=== PATIENT | male | born 1970 | race Two or more races ===

== ENCOUNTER 2017-08-29 22:15 | Emergency (ER) | payer OTHER ==
[2017-08-29 22:28] VITALS: BP 155/80; PULSE 76; TEMP 98.4; BMI 25.4
--- NOTE | 2017-08-29 22:54 | PDOC ---
History of Present Illness - General History Source: Patient Exam Limitations: No Limitations - History of Present Illness Initial Comments: 08/29/17 23:04 The patient is a 47 year old with a significant PMH of HTN and chronic pain who presents to the emergency department with an episode of shortness of breath just prior to arrival. The patient reports having dinner and taking his usual Percocet for his chronic pain when he had a sudden onset of shortness of breath. At presentation, the patient reports his symptoms have resolved. He currently denies shortness of breath. He denies chest pain. He denies headache or dizziness. He denies nausea or vomiting. Denies fever, chills, diarrhea and constipation. Denies dysuria, frequency, urgency and hematuria. Allergies: NKA Past surgical history: None reported. Social history: No reported cigarette, alcohol, or drug use. PCP: Dr. Pancho Montez <Yonny Funes - Last Filed: 08/29/17 23:04> - General History Source: Patient <Dustin Juarez - Last Filed: 08/29/17 23:05> - General Chief Complaint: Lethargy Stated Complaint: S.O.B Time Seen by Provider: 08/29/17 22:54 Past History <Yonny Funes - Last Filed: 08/29/17 23:04> - Past Medical History COPD: No HTN: Yes - Immunization History Immunization Up to Date: No - Suicide/Smoking/Psychosocial Hx Smoking History: Never smoked Have you smoked in the past 12 months: No Information on smoking cessation initiated: No Hx Alcohol Use: No Drug/Substance Use Hx: No Substance Use Type: None <Dustin Juarez - Last Filed: 08/29/17 23:05> - Past Medical History Allergies/Adverse Reactions: Allergies Allergy/AdvReac Type Severity Reaction Status Date / Time No Known Allergies Allergy Verified 08/29/17 22:24 Home Medications: Ambulatory Orders Oxycodone HCl/Acetaminophen [Percocet 5-325 mg Tablet] 1 - 2 tab PO Q6H Review of Systems - Review of Systems Able to Perform ROS?: Yes Comments:: 08/29/17 23:04 CONSTITUTIONAL: Absent: fever, chills, diaphoresis, generalized weakness, malaise, loss of appetite HEENT: Absent: rhinorrhea, nasal congestion, throat pain, throat swelling, difficulty swallowing, mouth swelling, ear pain, eye pain, visual Changes CARDIOVASCULAR: Absent: chest pain, syncope, palpitations, irregular heart rate, lightheadedness , peripheral edema RESPIRATORY: (+) Shortness of breath (resolved). Absent: cough, dyspnea with exertion, orthopnea, wheezing, stridor, hemoptysis GASTROINTESTINAL: Absent: abdominal pain, abdominal distension, nausea, vomiting, diarrhea, constipation, melena, hematochezia GENITOURINARY: Absent: dysuria, frequency, urgency, hesitancy, hematuria, flank pain, genital pain MUSCULOSKELETAL: Absent: myalgia, arthralgia, joint swelling SKIN: Absent: rash, itching, pallor HEMATOLOGIC/IMMUNOLOGIC: Absent: easy bleeding, easy bruising, lymphadenopathy, frequent infections ENDOCRINE: Absent: unexplained weight gain, unexplained weight loss, heat intolerance, cold intolerance NEUROLOGIC: Absent: headache, focal weakness or paresthesias, dizziness, unsteady gait, seizure, mental status changes, bladder or bowel incontinence PSYCHIATRIC: Absent: anxiety, depression, suicidal or homicidal ideation, hallucinations. <Yonny Funes - Last Filed: 08/29/17 23:04> *Physical Exam - Vital Signs Last Vital Signs Temp Pulse Resp BP Pulse Ox 98.4 F 76 18 155/80 100 08/29/17 22:25 08/29/17 22:25 08/29/17 22:25 08/29/17 22:25 08/29/17 22:25 - Physical Exam Comments: 08/29/17 23:04 GENERAL: Well developed, well nourished. Awake and alert. No acute distress. HEENT: Normocephalic, atraumatic. PERRLA, EOMI. No conjunctival pallor. Sclera are non- icteric. Moist mucous membranes. Oropharynx is clear. NECK: Supple. Full ROM. No JVD. Carotid pulses 2+ and symmetric, without bruits. No thyromegaly. No lymphadenopathy. CARDIOVASCULAR: Regular rate and rhythm. No murmurs, rubs, or gallops. Distal pulses are 2+ and symmetric. PULMONARY: No evidence of respiratory distress. Lungs clear to auscultation bilaterally. No wheezing, rales or rhonchi. ABDOMINAL: Soft. Non-tender. Non-distended. No rebound or guarding. No organomegaly. Normoactive bowel sounds. MUSCULOSKELETAL Normal range of motion at all joints. No bony deformities or tenderness. No CVA tenderness. EXTREMITIES: No cyanosis. No clubbing. No edema. No calf tenderness. SKIN: Warm and dry. Normal capillary refill. No rashes. No jaundice. NEUROLOGICAL: Alert, awake, appropriate. Cranial nerves 2-12 intact. No deficits to light touch and temperature in face, upper extremities and lower extremities. No motor deficits in the in face, upper extremities and lower extremities. Normoreflexic in the upper and lower extremities. Normal speech. Toes are downgoing bilaterally. Gait is normal without ataxia. PSYCHIATRIC: Cooperative. Good eye contact. Appropriate mood and affect. <Yonny Funes - Last Filed: 08/29/17 23:04> - Vital Signs Last Vital Signs Temp Pulse Resp BP Pulse Ox 98.4 F 76 18 155/80 100 08/29/17 22:25 08/29/17 22:25 08/29/17 22:25 08/29/17 22:25 08/29/17 22:25 <Dustin Juarez - Last Filed: 08/29/17 23:05> Medical Decision Making - Medical Decision Making 08/29/17 23:05 Dr. Juarez: The scribe's documentation has been prepared under my direction and personally reviewed by me in its entirery. I confirm that the note above accurately reflects all work, treatment, procedures, and medical decision making performed by me. <Dustin Juarez - Last Filed: 08/29/17 23:05> *DC/Admit/Observation/Transfer - Attestations Scribe Attestion: 08/29/17 23:04 Documentation prepared by Yonny Funes, acting as medical laboratory scientist for Dustin Juarez DO. <Yonny Funes - Last Filed: 08/29/17 23:04> - Discharge Dispostion Admit: No <Dustin Juarez - Last Filed: 08/29/17 23:05> Diagnosis at time of Disposition: SOB (shortness of breath) - Discharge Dispostion Disposition: HOME Condition at time of disposition: Stable - Referrals Referrals: Pancho Montez MD [Primary Care Provider] - - Patient Instructions Printed Discharge Instructions: DI for Shortness of Breath Additional Instructions: Please follow up with your primary care doctor for an reason. - Post Discharge Activity
== END 2017-08-29 23:15 | disposition home or self-care (01) ==
LOC: JER 22:15
DX: R06.02 Shortness of breath (principal); G89.29 Other chronic pain; I10 Essential (primary) hypertension
CPT/HCPCS: 99281-25

== ENCOUNTER 2018-06-08 21:51 | Emergency (ER) | payer OTHER ==
[2018-06-08 22:09] VITALS: BP 126/78; PULSE 79; TEMP 98.1; BMI 25.5
--- NOTE | 2018-06-08 22:40 | PDOC ---
Attending Attestation - HPI HPI: 06/08/18 23:52 The patient is a 48 year old male, with a significant PMH of HTN, who presents to the emergency department with chest pain that began 4 days ago that progressively worsened today. The patient states intermittent sharp pain is located to left anterior chest wall that radiates to the left shoulder and left upper back. The patient notes pain is worsened when lying on the left side and movement of left arm. The patient denies numbness, tingling, headache and dizziness. Denies fever, chills, nausea, vomit, diarrhea and constipation. Denies dysuria, frequency, urgency and hematuria. Allergies: NKDA Past surgical history: None reported Social history: None reported PCP: Pancho Montez Documentation prepared by Farzana Hankins, acting as medical director of hospice for Amber Huynh MD. <Farzana Hankins - Last Filed: 06/08/18 23:52> - ED Attending Attestation I have performed the following: I have examined & evaluated the patient, The case was reviewed & discussed with the resident, I agree w/resident's findings & plan - Physicial Exam PE: 06/09/18 01:05 Agree with resident exam. Pt has left shoulder pain, and states that he he pain x 4 days. Slightly worse today. States that he has no worsening pain with movement or activity. - Medical Decision Making 06/09/18 01:12 Pt has normal labs, normal exam. CXR normal -borderline cardiomegaly; BP in bilat arms: 133/99 on right and 135/89 on left. Pt has no CP here. He has slight twinge of pain whenever he gets PVCs on the monitor. Pt has no SOB and he has no pain with movement of the arms. He was advised to limit his coffee intake to 1 cup daily. Pt will follow with PMD Pancho Montez. 06/09/18 01:15 Pt will be referred to Dr. Waite who is educational speech language clinician for cardiology today. <Amber Huynh - Last Filed: 06/09/18 01:16>
--- NOTE | 2018-06-08 23:15 | PDOC ---
History of Present Illness - General Chief Complaint: Chest Pain Stated Complaint: CHEST PAIN Time Seen by Provider: 06/08/18 22:11 History Source: Patient Exam Limitations: No Limitations - History of Present Illness Initial Comments: HPI: 48 y/o male presenting to [facility] ER complaining of left sided chest, shoulder, and upper back pain worsening over the past four days. Pain is described as sharp and like something is pulling at my tissue under the skin with radiation to left shoulder, left upper arm, and left upper back. Was intermittent and became more constant today. Pain made worse by sleeping on left side and active movement of left arm. Unable to recall exciting event. No change with deep inspiration or exertion. Denies SOB, lightheadedness, dizziness , orthopnea, paroxysmal nocturnal dyspnea, lower extremity swelling, or trauma to the area. Denies h/o of similar. 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 Denies heavy lifting or on the job strain to the area. 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 - EtOH: Socially, none in past 48 hours - Tobacco: Former smoker, quit 15 years ago, smoked for 5 years - Street Drugs: Denies Medical Hx: - HTN, managed with Amlodipine, Losartan, Metoprolol, and Hydrochlorothiazide Surgical Hx: - Denies PSH Family Hx: - Sister age 43 of hemorrhagic stroke suspected secondary to HTN - Niece in 30s of hemorrhagic stroke suspected secondary to HTN, 2 weeks ago Past History - Past Medical History Allergies/Adverse Reactions: Allergies Allergy/AdvReac Type Severity Reaction Status Date / Time No Known Allergies Allergy Verified 06/08/18 22:09 Home Medications: Ambulatory Orders Amlodipine Besylate [Norvasc -] 5 mg PO DAILY 06/09/18 Hydrochlorothiazide [Hctz -] 25 mg PO DAILY 06/09/18 Losartan Potassium [Cozaar -] 25 mg PO DAILY 06/09/18 Metoprolol Tartrate [Lopressor -] 25 mg PO DAILY 06/09/18 COPD: No HTN: Yes - Immunization History Immunization Up to Date: No - Suicide/Smoking/Psychosocial Hx Smoking History: Never smoked Have you smoked in the past 12 months: No Information on smoking cessation initiated: No Hx Alcohol Use: No Drug/Substance Use Hx: No Substance Use Type: None Review of Systems - Review of Systems Able to Perform ROS?: Yes Comments:: In addition to that documented in the HPI above, the additional ROS was obtained : Constitutional: Denies fevers or chills Eyes: Denies vision changes ENMT: Denies sore throat CV: Per HPI Resp: Denies SOB GI: Denies vomiting or diarrhea : Denies painful urination MSK: Denies recent trauma Skin: Denies new rashes Neuro: Denies new numbness or tingling or weakness Endocrine: Denies polyuria Heme: Denies bleeding or bruising *Physical Exam - Vital Signs Last Vital Signs Temp Pulse Resp BP Pulse Ox 98.1 F 79 18 126/78 99 06/08/18 22:00 06/08/18 22:00 06/08/18 22:00 06/08/18 22:00 06/08/18 22:00 - Physical Exam Comments: Constitutional: Well-developed, well-nourished male in no acute distress or obvious discomfort. Found sitting on edge of hospital bed. Alert and oriented x4. Answered all questions appropriately and completely. Speech was non-labored , non-pressured. Head: Normocephalic. No obvious external signs of trauma. Eyes: Sclerae white. EARS: Hearing grossly intact. NOSE: No nasal discharge. Neck: Supple, trachea is midline. Cardiovascular/ Chest: Regular rate and regular rhythm. No murmur, rubs, clicks , or gallops. Peripheral pulses: Radial pulses full. No tenderness to costochondral joints or left anterior chest wall. No skin lesions. Respiratory: Breathing unlabored. Equal chest rise and fall. Clear to auscultation bilaterally. No stridor, no wheezing, no rhonchi. Neuro: Alert and oriented. Moving all four extremities spontaneously. Gait normal, observed walking unassisted through the department without difficulty. Skin: Warm, dry, and intact. No bruising, rashes, or other lesions. MSK: Pain worsened with active ROM of left shoulder, left off test, and empty beer can test. No tenderness to direct palpation of left anterior or posterior AC joint. Psych: Affect: appropriate. Mood: normal. Moderate Sedation - Procedure Monitoring Vital Signs: Procedure Monitoring Vital Signs Temperature 98.1 F 06/08/18 22:00 Pulse Rate 79 06/08/18 22:00 Respiratory Rate 18 06/08/18 22:00 Blood Pressure 126/78 06/08/18 22:00 O2 Sat by Pulse Oximetry (%) 99 06/08/18 22:00 ED Treatment Course - LABORATORY CBC & Chemistry Diagram: 06/08/18 23:40 06/08/18 23:40 Medical Decision Making - Medical Decision Making *Reviewed vital signs, nursing notes, and prior visit documentation (if available). 48 y/o male with left sided chest and shoulder pain x4 days. Worse with left shoulder movement. No significant cardiac symptom red flags identified. Risk factors include HTN and family history of HTN and CVA. Afebrile. Vitals unremarkable for hypotension or tachycardia. Low suspicion for ACS, arrhythmia, pneumonia, pericardial effusion, pericarditis, or myocarditis. Suspect MSK given reproducible nature with movement of left arm. Will obtain CBC, CMP, Troponin, EKG, CXR, and left shoulder plain film. Ordered ASA. EKG: Sinus rhythm with a ventricular rate of 64 bpm. Normal axis. Normal intervals. No ST segment elevation or depression. No hyperacute T waves. No pathologic Q waves. CXR unremarkable for acute cardiopulmonary process. L shoulder pain film unremarkable for bony fracture or dislocation. CBC unremarkable for leukocytosis or anemia. CMP unremarkable for electrolyte derangement. LFTs not elevated. eGFR >60. Troponin not elevated. Low suspicion for ACS, especially with normal EKG. Will not obtain second troponin as pain has been present for >3 hours and more suspicion for MSK pain. Ordered cyclobenzaprine for symptom relief. Discussed imaging and laboratory results with pt. Answered all questions. Provided return precautions. Pt expressed verbal understanding and agreement with plan to discharge home with outpatient follow up. *DC/Admit/Observation/Transfer Diagnosis at time of Disposition: Atypical chest pain Left shoulder pain Qualifiers: Chronicity: acute Qualified Code(s): M25.512 - Pain in left shoulder - Discharge Dispostion Disposition: HOME Condition at time of disposition: Good Decision to Admit order: No - Referrals Referrals: Pancho Montez MD [Primary Care Provider] - - Patient Instructions Printed Discharge Instructions: DI for Atypical Chest Pain Additional Instructions: You were seen today for left sided chest and shoulder pain. Your EKG, blood work , and xrays were normal. Your pain is likely muscular in nature. You should follow up with your primary care doctor within the next few days to make sure you are healing. Go to the nearest emergency department if your condition worsens or you feel like you need additional emergency evaluation. Print Language: PALESTINIAN - Post Discharge Activity Forms/Work/School Notes: Back to Work
[2018-06-08] MEDS ORDERED: ASPIRIN 81 MG CHEWABLE TABLETS PO ONE (23:17)
[2018-06-08] MEDS ORDERED: ASPIRIN 81 MG CHEWABLE TABLETS ONE (23:27)
[2018-06-08 23:46] LABS: BASO % 0.4 % (0-2.0); EOS % 2.2 % (0-4.5); HEMATOCRIT 42.6 % (35.4-49); HEMOGLOBIN 14.8 GM/dL (11.7-16.9); LYMPH % 50.4 % (8-40); MCH 31.5 pg (25.7-33.7); MCHC 34.8 g/dl (32.0-35.9); MEAN CELL VOLUME 90.4 fl (80-96); MEAN PLT VOLUME 8.7 fl (7.5-11.1); MONO % 11.7 % (3.8-10.2); NEUT % 35.3 % (42.8-82.8); PLATELET COUNT 184 K/MM3 (134-434); RBC 4.71 M/mm3 (4.00-5.60); RDW 14.8 % (11.9-15.9)
[2018-06-09 00:23] LABS: ALBUMIN 3.8 g/dl (3.4-5.0); ALK PHOS 48 U/L (45-117); ANION GAP 7 MMOL/L (8-16); BILIRUBIN,TOTAL 0.6 mg/dL (0.2-1); BLOOD UREA NITROGEN 16 mg/dL (7-18); CHLORIDE 104 mmol/L (98-107); CO2 30 mmol/L (21-32); GLUCOSE,RANDOM 93 mg/dL (74-106); POTASSIUM 3.8 mmol/L (3.5-5.1); SGOT/AST 31 U/L (15-37); SGPT/ALT 34 U/L (13-61); SODIUM 141 mmol/L (136-145); TOT PROT 6.9 g/dl (6.4-8.2)
[2018-06-09] MEDS ORDERED: METHOCARBAMOL 500 MG TABLET PO ONE (00:56)
[2018-06-09] MEDS ORDERED: METHOCARBAMOL 500 MG TABLET ONE (01:03)
--- NOTE | 2018-06-09 15:46 | EKG ---
Test Reason : Blood Pressure : / mmHG Vent. Rate : 064 BPM Atrial Rate : 064 BPM P-R Int : 168 ms QRS Dur : 098 ms QT Int : 372 ms P-R-T Axes : 075 034 058 degrees QTc Int : 383 ms NORMAL SINUS RHYTHM POSSIBLE LEFT ATRIAL ENLARGEMENT LEFT VENTRICULAR HYPERTROPHY ABNORMAL ECG NO PREVIOUS ECGS AVAILABLE Confirmed by OMAIRA LONGORIA MD ([id number]) on 06/09/2018 3:46:02 PM Referred By: Confirmed By:OMAIRA LONGORIA MD
== END 2018-06-09 01:17 | disposition home or self-care (01) ==
LOC: JER 21:51
DX: R07.9 Chest pain, unspecified (principal); M25.512 Pain in left shoulder
CPT/HCPCS: 36415; 71046-TC-FY; 73030-TC-LT-FY; 80053; 84484; 85025; 93005; 93010; 99282-25